=== PATIENT | male | born 1960 | race Hispanic/Latino ===

== ENCOUNTER 2021-11-11 10:49 | Emergency (ER) | payer SELFPAY ==
[2021-11-11] MEDS ORDERED: Tetracaine 0.5% PF 4 ML BOT ONE (11:04)
[2021-11-11] MEDS ORDERED: Ondansetron ODT 4 MG TAB ONE (11:17)
[2021-11-11] MEDS ORDERED: Acetaminophen 500 MG TAB ONE (11:17)
== END 2021-11-11 13:08 | disposition home or self-care (01) ==
LOC: BURERS 10:49 → EDBD 10:49 → BURERS 13:08
DX: S05.02XA Injury of conjunctiva and corneal abrasion without foreign body, left eye, initial encounter (principal); I10 Essential (primary) hypertension; E11.9 Type 2 diabetes mellitus without complications; X58.XXXA Exposure to other specified factors, initial encounter
CPT/HCPCS: 99283; Q0162

== ENCOUNTER 2021-11-17 09:27 | Outpatient (CLI) | payer OTHER ==
[2021-11-17 10:26] LABS: #Basophils 0.1 thou/uL (0.0-0.2); #Eosinphils 0.1 thou/uL (0.0-0.7); #Lymphocytes 1.6 thou/uL (1.20-3.40); #Monocytes 0.7 thou/uL (0.11-0.59); #Neutrophils 7.4 thou/uL (1.40-6.50); %Basophils 0.6 % (0.0-1.0); %Lymphocytes 16.4 % (21.0-51.0); %Monocytes 6.6 % (0.0-10.0); %Neutrophils 75.4 % (42.0-75.0); Hemoglobin 14.8 g/dL (14.0-18.0); Mean Corpuscular Hemoglobin 30.5 pg (27.0-31.0); Mean Corpuscular Volume 89.7 fL (78.0-98.0); Mean Platelet Volume 11.3 fL (7.4-10.4); Platelet Count 249 thou/uL (130-400); Red Blood Cell (RBC) Count 4.86 mill/uL (4.70-6.10); White Blood Cell (WBC) Count 9.9 thou/uL (4.8-10.8)
[2021-11-17 10:33] LABS: ALT (SGPT) 21 U/L (8-55); AST (SGOT) 17 U/L (5-34); Albumin 3.8 g/dL (3.5-5.0); Alkaline Phosphatase 102 U/L (40-110); Anion Gap 15 mmol/L (10-20); BUN (Urea Nitrogen) 17 mg/dL (8.4-25.7); Bilirubin, Total 0.3 mg/dL (0.2-1.2); CRP (Inflammatory) 1.35 mg/dL (= or < 0.5); Calc. Creatinine Clearance 0 mL/min (70-130); Calcium 9.2 mg/dL (7.8-10.44); Carbon Dioxide 28 mmol/L (22-29); Cardiac Risk 4.7 (Less than 4.5); Chloride 101 mmol/L (98-107); Cholesterol 218 mg/dl (< 200 Desired); Globulin 2.9 g/dL (2.4-3.5); Glucose 213 mg/dL (70-105); HDL Cholesterol 46 mg/dL (>60 Neg Risk); LDL Cholesterol, Calculated 139 mg/dL; Magnesium 2.3 mg/dL (1.6-2.6); Protein, Total 6.7 g/dL (6.0-8.3); Sodium 139 mmol/L (136-145); Triglycerides 164 mg/dL (Less than 150)
[2021-11-17 10:35] LABS: Bilirubin Negative (Negative); Blood, Urine Negative (Negative); Clarity Clear (Clear); Glucose, Urine (Dipstick) 100 mg/dL (Negative); Ketone, Urine Negative (Negative); Leukocyte Negative (Negative); Nitrite Negative (Negative); Protein, Urine (Dipstick) 30 mg/dL (Neg-Trace); Specific Gravity, Urine 1.015 (1.005-1.030); Urobilinogen 0.2 mg/dL (Less than 2)
[2021-11-17 10:47] LABS: Thyroid Stimulating Hormone 0.5436 uIU/mL (0.35-4.94)
[2021-11-17 10:53] LABS: Bacteria/HPF Rare-Few HPF (None Seen); RBC/HPF 0-3 HPF (0-3); Squamous Epithelial 0-3 HPF (0-3); WBC/HPF 0-3 HPF (0-3)
[2021-11-17 15:50] LABS: Hemoglobin A1c 12.5 % (4.0-6.0)
[2021-11-17 15:53] LABS: Phosphorus 3.6 mg/dL (2.3-4.7)
[2021-11-17 16:12] LABS: PSA-Asymptomatic (SCREENING) 0.42 ng/mL (0-4.0)
== END 2021-11-17 09:28 | disposition home or self-care (01) ==
LOC: BURLAB 09:27
PROVIDERS: ATTEND Naturopath
DX: Z13.1 Encounter for screening for diabetes mellitus (principal); R03.0 Elevated blood-pressure reading, without diagnosis of hypertension; N41.9 Inflammatory disease of prostate, unspecified; E55.9 Vitamin D deficiency, unspecified; E07.9 Disorder of thyroid, unspecified; I69.30 Unspecified sequelae of cerebral infarction
CPT/HCPCS: 36415; 80053; 80061; 81001; 82306; 83036; 83735; 84100; 84443; 85025; 86140; G0103

== ENCOUNTER 2022-03-13 08:27 | Outpatient (CLI) | payer OTHER ==
[2022-03-13 08:54] LABS: #Eosinphils 0.2 thou/uL (0.0-0.7); #Lymphocytes 1.6 thou/uL (1.20-3.40); #Monocytes 0.4 thou/uL (0.11-0.59); #Neutrophils 5.5 thou/uL (1.40-6.50); %Basophils 0.6 % (0.0-1.0); %Eosinophils 2.2 % (0.0-10.0); %Lymphocytes 20.3 % (21.0-51.0); %Monocytes 5.7 % (0.0-10.0); %Neutrophils 71.3 % (42.0-75.0); Hemoglobin 13.6 g/dL (14.0-18.0); Mean Corpuscular HGB CONC 32.7 g/dL (32.0-36.0); Mean Corpuscular Hemoglobin 30.4 pg (27.0-31.0); Mean Platelet Volume 10.3 fL (7.4-10.4); Platelet Count 197 thou/uL (130-400); RBC Distribution Width 12.7 % (11.5-14.5); Red Blood Cell (RBC) Count 4.49 mill/uL (4.70-6.10); White Blood Cell (WBC) Count 7.7 thou/uL (4.8-10.8)
[2022-03-13 10:05] LABS: Albumin 3.6 g/dL (3.5-5.0); Anion Gap 15 mmol/L (10-20); BUN (Urea Nitrogen) 24 mg/dL (8.4-25.7); BUN/Creatinine Ratio 25.81; Calc. Creatinine Clearance 0 mL/min (70-130); Calcium 8.7 mg/dL (7.8-10.44); Carbon Dioxide 25 mmol/L (22-29); Cardiac Risk 5.3 (Less than 4.5); Chloride 103 mmol/L (98-107); Cholesterol 212 mg/dl (< 200 Desired); Glucose 411 mg/dL (70-105); HDL Cholesterol 40 mg/dL (>60 Neg Risk); LDL Cholesterol, Calculated 140 mg/dL; Magnesium 2.4 mg/dL (1.6-2.6); Potassium 4.7 mmol/L (3.5-5.1); Sodium 138 mmol/L (136-145); Triglycerides 162 mg/dL (Less than 150); Uric Acid 7.5 mg/dL (3.5-7.2)
[2022-03-13 10:26] LABS: Thyroid Stimulating Hormone 1.2312 uIU/mL (0.35-4.94)
[2022-03-13 11:10] LABS: Phosphorus 3.4 mg/dL (2.3-4.7)
[2022-03-13 11:18] LABS: Hemoglobin A1c 12.4 % (4.0-6.0)
[2022-03-13 11:53] LABS: Vitamin D, 25 Hydroxy 16.2 ng/ml (> 30.0)
== END 2022-03-13 08:28 | disposition home or self-care (01) ==
LOC: BURLAB 08:27
PROVIDERS: ATTEND Naturopath
DX: E78.5 Hyperlipidemia, unspecified (principal); E55.9 Vitamin D deficiency, unspecified; I10 Essential (primary) hypertension
CPT/HCPCS: 36415; 80061; 80069; 82306; 83036; 83735; 84443; 84550; 85025